=== PATIENT | male | born 1995 | race Hispanic/Latino ===

== ENCOUNTER 2017-02-10 01:17 | Emergency (ER) | payer BC ==
[2017-02-10] MEDS ORDERED: DELTASONE PO ONE (01:38)
[2017-02-10] MEDS ORDERED: PEPCID PO ONE (01:39)
--- NOTE | 2017-02-10 06:16 | Emergency Department Report ---
HPI - General Chief Complaint: Allergic Reaction Time Seen by Provider: 02/10/17 06:00 - HPI HPI: 21-year-old male presents to the stating that she was exposed to poison margarita 3 days ago. Patient states that the contact was around his right eye. Denies vision change, eye drainage or pain. Positive for pruritus. Denies bleeding or drainage. Denies difficulty in breathing or difficulty swallowing. Positive for history of poison margarita exposure and states this feels similar. Patient is requesting steroids. Denies fever, chills, nausea, vomiting, chest pain, shortness of breath, abdominal pain. ED Past Medical Hx - Past Medical History Hx Psychiatric Treatment: Yes (Anxiety) - Surgical History Past Surgical History?: No - Social History Smoking Status: Current Every Day Smoker Substance Use Type: None - Medications Home Medications: Home Medications Medication Instructions Recorded Confirmed Last Taken Type hydrOXYzine HCL [Atarax] 25 mg PO Q6HR PRN #20 tablet 02/10/17 Unknown Rx predniSONE [Deltasone] 20 mg PO QDAY #7 tab 02/10/17 Unknown Rx ED Review of Systems ROS: Stated complaint: FACIAL RASH Other details as noted in HPI Constitutional: denies: chills, fever, malaise Eyes: denies: eye pain, eye discharge, vision change ENT: denies: ear pain, throat pain, congestion Respiratory: denies: cough, shortness of breath, wheezing Cardiovascular: denies: chest pain, palpitations Endocrine: no symptoms reported Gastrointestinal: denies: abdominal pain, nausea, vomiting Skin: rash Neurological: denies: headache, weakness Physical Exam - Physical Exam Vital Signs: Vital Signs 02/10/17 01:28 Temperature 98.6 F Pulse Rate 96 H Respiratory 16 Rate Blood Pressure 140/80 Blood Pressure 140/88 [Left] O2 Sat by Pulse 97 Oximetry Physical Exam: GENERAL: The patient is well-developed and well-nourished. Patient is in NAD. HEAD: Normocephalic. Atraumatic. erythematous, pruritic, region with minimal blister noted over the lateral aspect of right eye. EYES: Extraocular motions are intact, PERRL. No conjunctival injection. No drainage noted. NOSE: Normal nasal mucosa with no nasal discharge. THROAT: No erythema, swelling or exudates. NECK: Supple, nontender, without lymphadenopathy. CHEST/LUNGS: Clear to auscultation throughout. HEART/CARDIOVASCULAR: Regular rate and rhythm. No murmurs, rubs or gallops. ABDOMEN: Abdomen is soft, nontender. Bowel sounds normoactive. No guarding or rebound tenderness. EXTREMITIES: Peripheral pulses intact. Capillary refill less than 2 seconds. NEURO: Alert and oriented x 3. Normal gait. ED Course Vital Signs 02/10/17 01:28 Temperature 98.6 F Pulse Rate 96 H Respiratory 16 Rate Blood Pressure 140/80 Blood Pressure 140/88 [Left] O2 Sat by Pulse 97 Oximetry ED Medical Decision Making - Lab Data Vital Signs 02/10/17 01:28 Temperature 98.6 F Pulse Rate 96 H Respiratory 16 Rate Blood Pressure 140/80 Blood Pressure 140/88 [Left] O2 Sat by Pulse 97 Oximetry - Medical Decision Making 21-year-old male presents today post poison margarita exposure. Patient is in no acute distress at this time. She will be discharged home and is encouraged to follow up with a primary care provider. He will be sent home on hydroxyzine and prednisone and is encouraged to return to the emergency room for any worsening symptoms. Critical care attestation.: If time is entered above; I have spent that time in minutes in the direct care of this critically ill patient, excluding procedure time. ED Disposition Clinical Impression: Poison margarita, Rash Disposition: DISCHARGED TO HOME OR SELFCARE Is pt being admited?: No Does the pt Need Aspirin: No Condition: Stable Instructions: Poison Margarita (ED) Additional Instructions: Follow-up with primary care provider. Return to the emergency department if symptoms worsen. Prescriptions: hydrOXYzine HCL [Atarax] 25 mg PO Q6HR PRN #20 tablet PRN Reason: Itching predniSONE [Deltasone] 20 mg PO QDAY #7 tab Referrals: PRIMARY CAREMD [Primary Care Provider] - 3-5 Days [facility] [Outside] - 3-5 Days Forms: Work/School Release Form(ED) Time of Disposition: 06:25
[2017-02-10 06:46] VITALS: BP 117/66
== END 2017-02-10 06:47 | disposition home or self-care (01) ==
LOC: ED 01:17
DX: L23.7 Allergic contact dermatitis due to plants, except food (principal); F41.9 Anxiety disorder, unspecified; F17.200 Nicotine dependence, unspecified, uncomplicated
CPT/HCPCS: 99282; J7512